=== PATIENT | female | born 1970 | race African-American/Black ===

== ENCOUNTER 2020-07-06 12:37 | Emergency (ER) | payer OTHER ==
[2020-07-06] MEDS ORDERED: ONDANSETRON HCL INJ/PF 4 MG/2 ML SDV IV ONE (12:51)
[2020-07-06] MEDS ORDERED: NORMAL SALINE 1000 ML 1,000 ML IV ONE (12:52)
--- NOTE | 2020-07-06 12:53 | ER Document Report ---
ED Medical Screen (RME) - General Chief Complaint: Dizziness Stated Complaint: DIZZINESS Time Seen by Provider: 07/06/20 12:47 Mode of Arrival: Ambulatory Information source: Patient Notes: Patient presents complaining of nausea dizziness and lower pelvic pain. Patient reports her menstrual cycle started today. Patient states she does feel hot although denies any chills. Patient denies any cough or cold symptoms, no urinary problems. Patient denies any chest discomfort. I have greeted and performed a rapid initial assessment of this patient. A comprehensive ED assessment and evaluation of the patient, analysis of test results and completion of the medical decision making process will be conducted by additional ED providers. Physical Exam - Vital signs Vitals: Temp Pulse Resp BP Pulse Ox 97.4 F 56 L 16 160/92 H 98 07/06/20 12:46 07/06/20 12:46 07/06/20 12:46 07/06/20 12:46 07/06/20 12:46 - Respiratory Respiratory status: No respiratory distress Breath sounds: Normal - Cardiovascular Rhythm: Bradycardia Heart sounds: S1 appreciated, S2 appreciated Course - Vital Signs Vital signs: Temp Pulse Resp BP Pulse Ox 97.4 F 56 L 16 160/92 H 98 07/06/20 12:46 07/06/20 12:46 07/06/20 12:46 07/06/20 12:46 07/06/20 12:46
[2020-07-06 14:04] LABS: ABSOLUTE BASOPHILS # (AUTO) 0.1 10^3/uL (0.0-0.2); ABSOLUTE LYMPHOCYTES (AUTO) 1.7 10^3/uL (0.5-4.7); ABSOLUTE MONOCYTES (AUTO) 0.6 10^3/uL (0.1-1.4); BASOPHILS % (AUTO) 0.8 % (0-2); EOSINOPHILS % (AUTO) 0.4 % (0-6); HEMATOCRIT 36.5 % (36.0-47.0); HEMOGLOBIN 12.6 g/dL (12.0-15.5); LYMPHOCYTES % (AUTO) 18.2 % (13-45); MEAN CORPUSCULAR HEMOGLOBIN 32.8 pg (27.0-33.4); MEAN CORPUSCULAR HGB CONC 34.5 g/dL (32.0-36.0); MEAN CORPUSCULAR VOLUME 95 fl (80-97); MONOCYTES % (AUTO) 6.4 % (3-13); PLATELET COUNT 331 10^3/uL (150-450); RED BLOOD COUNT 3.83 10^6/uL (3.72-5.28); RED CELL DISTRIBUTION WIDTH 12.8 % (11.5-14.0); SEGMENTED NEUTROPHILS % (AUTO) 74.2 % (42-78); TOTAL CELLS COUNTED % (AUTO) 100 %; WHITE BLOOD COUNT 9.4 10^3/uL (4.0-10.5)
[2020-07-06 14:24] LABS: ALBUMIN 4.2 g/dL (3.5-5.0); ALKALINE PHOSPHATASE 72 U/L (38-126); ANION GAP 8 (5-19); ASPARTATE AMINO TRANSFERASE 22 U/L (14-36); BILIRUBIN,DIRECT 0.2 mg/dL (0.0-0.4); BILIRUBIN,TOTAL 0.6 mg/dL (0.2-1.3); BLOOD UREA NITROGEN 11 mg/dL (7-20); CALCIUM 9.6 mg/dL (8.4-10.2); CARBON DIOXIDE 26 mmol/L (22-30); CHLORIDE 107 mmol/L (98-107); GLUCOSE 103 mg/dL (75-110); POTASSIUM 4.3 mmol/L (3.6-5.0); TOTAL PROTEIN 7.8 g/dL (6.3-8.2)
--- NOTE | 2020-07-06 15:08 | ER Document Report ---
ED Dizziness/Weakness - General Chief Complaint: Dizziness Stated Complaint: DIZZINESS Time Seen by Provider: 07/06/20 12:47 Mode of Arrival: Ambulatory Information source: Patient Notes: 07/06/20 12:47 - ED Nursing Note by LASHAWN WASHINGTON Acct Num: [id number] : 1970 Patient Age: 50 Pt ambulates into ER with c/o dizziness,nausea, lower abdominal pain that radiates bilaterally into thighs that started one week ago. Pt states that she started her period yesterday and normally has abdominal pain but the nausea and dizziness is new and is worsening. Pt states that it feels like the room is spinning. Denies any urinary symptoms. Pt aaox4, skin warm and dry, respirations e/u, NAD noted at this time. ED Medical Screen (RME) - General Chief Complaint: Dizziness Stated Complaint: DIZZINESS Time Seen by Provider: 07/06/20 12:47 Mode of Arrival: Ambulatory Information source: Patient Notes: Patient presents complaining of nausea dizziness and lower pelvic pain. Patient reports her menstrual cycle started today. Patient states she does feel hot although denies any chills. Patient denies any cough or cold symptoms, no urinary problems. Patient denies any chest discomfort. My Notes 50-year-old black female arrives with chief complaint of suprapubic pain for 1 week. She had vomiting yesterday. She ate cereal with milk this morning for breakfast. That was her last meal. She denies any trauma abuse fever chills cough or cold symptoms. She denies any coronavirus exposure. She denies any vaginal discharge. Patient had today in the ER a negative CBC Chem-7 and hCG. Prior history in 2009 for right-sided ectopic with surgery. She has right tube status post resection. She also had ovarian cyst in . - HPI Onset: Last week Onset/Duration: Sudden, Persistent Quality of pain: Achy Severity: Mild Pain Level: 1 - Related Data Allergies/Adverse Reactions: No Known Drug Allergies Allergy (Verified 07/06/20 12:58) Past Medical History - General Information source: Patient - Social History Smoking Status: Never Smoker Cigarette use (# per day): No Chew tobacco use (# tins/day): No Smoking Education Provided: No Frequency of alcohol use: None Drug Abuse: None Lives with: Family Family History: Reviewed & Not Pertinent Patient has suicidal ideation: No Patient has homicidal ideation: No Review of Systems - Review of Systems Constitutional: See HPI, Weakness EENT: No symptoms reported Cardiovascular: No symptoms reported Respiratory: No symptoms reported Gastrointestinal: See HPI, Abdominal pain, Nausea, Vomiting Genitourinary: No symptoms reported Female Genitourinary: No symptoms reported Musculoskeletal: No symptoms reported Skin: No symptoms reported Hematologic/Lymphatic: No symptoms reported Neurological/Psychological: No symptoms reported Physical Exam - Vital signs Vitals: Temp Pulse Resp BP Pulse Ox 97.4 F 56 L 16 160/92 H 98 07/06/20 12:46 07/06/20 12:46 07/06/20 12:46 07/06/20 12:46 07/06/20 12:46 Interpretation: Hypertensive, Bradycardic - General General appearance: Appears well, Alert - HEENT Head: Normocephalic, Atraumatic Eyes: Normal Pupils: PERRL Sinus: Normal Nasal: Normal Mouth/Lips: Normal Mucous membranes: Normal Pharynx: Normal Neck: Normal - Respiratory Respiratory status: No respiratory distress Chest status: Nontender Breath sounds: Normal Chest palpation: Normal - Cardiovascular Rhythm: Bradycardia Heart sounds: Normal auscultation Murmur: No - Abdominal Inspection: Normal Distension: No distension Bowel sounds: Normal Tenderness: Tender - Suprapubic tenderness on palpation Organomegaly: No organomegaly - Rectal Hemorrhoids: Other - deferred - Genitourinary Bimanuel exam: Other - deferred - Back Back: Normal - Extremities General upper extremity: Normal inspection General lower extremity: Normal inspection - Neurological Neuro grossly intact: Yes Cognition: Normal Orientation: AAOx4 Maribel Coma Scale Eye Opening: Spontaneous [place] Coma Scale Verbal: Oriented [place] Coma Scale Motor: Obeys Commands Maribel Coma Scale Total: 15 Speech: Normal Motor strength normal: LUE, RUE, LLE, RLE Sensory: Normal - Psychological Associated symptoms: Normal affect - Skin Skin Temperature: Warm Skin Moisture: Dry Course - Vital Signs Vital signs: Temp Pulse Resp BP Pulse Ox 97.4 F 56 L 16 160/92 H 98 07/06/20 12:46 07/06/20 12:46 07/06/20 12:46 07/06/20 12:46 07/06/20 12:46 - Laboratory Result Diagrams: 07/06/20 13:46 07/06/20 13:46 Laboratory results interpreted by me: 07/06/20 14:44 Urine Blood LARGE H - Diagnostic Test Radiology reviewed: Reports reviewed - Radiology advises patient has a 3.8 left ovarian cyst. Critical Care Note - Critical Care Note Comments: I advised patient of her ovarian cyst and its size. Family member was also in and she appeared to understand the diagnosis. I will write her for pain medicine and have her follow-up with her perioperative manager or PMD. She advises she does not need a work note for school note. I advised her to not do any dangerous machinery blinders ovens or back hoes chainsaws or automobiles while she is on pain medicine. Discharge - Discharge Clinical Impression: Abdominal pain Qualifiers: Abdominal location: unspecified location Qualified Code(s): R10.9 - Unspecified abdominal pain Ovarian cyst Qualifiers: Laterality: left Qualified Code(s): N83.202 - Unspecified ovarian cyst, left side Condition: Good Disposition: HOME, SELF-CARE Additional Instructions: I advised you of your ovarian cyst and its size. You appeared to understand the diagnosis. I will write you for pain medicine and have you follow-up with your perioperative manager or PMD. You advised you do not need a work note or school note. I advised you to not do any dangerous machinery blenders ovens or back hoes chainsaws or automobiles while on pain medicine. Prescriptions: Etodolac [Lodine] 400 mg PO BID PRN #20 tablet PRN Reason: Pain Scale Of 1 Oxycodone HCl/Acetaminophen [Percocet 5-325 mg Tablet] 1 tab PO TID #15 tablet
[2020-07-06 15:34] LABS: APPEARANCE,URINE CLEAR; BILIRUBIN,URINE NEGATIVE (NEGATIVE); COLOR,URINE YELLOW; GLUCOSE, URINE NEGATIVE (NEGATIVE); KETONES,URINE NEGATIVE (NEGATIVE); LEUKOCYTE ESTERASE,URINE NEGATIVE (NEGATIVE); NITRITE,URINE NEGATIVE (NEGATIVE); PROTEIN,URINE NEGATIVE (NEGATIVE); URINE SPECIFIC GRAVITY 1.011; UROBILINOGEN,URINE NEGATIVE mg/dL (<2.0)
--- NOTE | 2020-07-06 16:09 | RADIOLOGY REPORT (SQ) ---
EXAM DESCRIPTION: CT ABD/PELVIS WITH IV ONLY IMAGES COMPLETED DATE/TIME: 07/06/2020 3:50 pm REASON FOR STUDY: abd pain n/v dizzy COMPARISON: None. TECHNIQUE: CT scan of the abdomen and pelvis performed using helical scanning technique with dynamic intravenous contrast injection. No oral contrast. Images reviewed with lung, soft tissue, and bone windows. Reconstructed coronal and sagittal MPR images reviewed. Delayed images for evaluation of the urinary system also acquired. All images stored on PACS. All CT scanners at this facility use dose modulation, iterative reconstruction, and/or weight based d osing when appropriate to reduce radiation dose to as low as reasonably achievable (ALARA). [facility]: Dose Right [facility]: CareDose [facility]: Dose Right [facility]: Teradose 4D [facility]: Ninsight Broadcast CONTRAST TYPE AND DOSE: contrast/concentration: Isovue 350.00 mmol/ml; Total Contrast Delivered: 100 .0 ml; Total Saline Delivered: 39.2 ml RENAL FUNCTION: BUN 11 creatinine 0.78 RADIATION DOSE: CT Rad equipment meets quality standard of care and radiation dose reduction techniq ues were employed. CTDIvol: 12.8 - 17.6 mGy. DLP: 1621 mGy-cm.. LIMITATIONS: None. FINDINGS: LOWER CHEST: No significant findings. No nodules or infiltrates. LIVER: Normal size. No masses. No dilated ducts. SPLEEN: Normal size. No focal lesions. PANCREAS: No masses. No significant calcifications. No adjacent inflammation or peripancreatic fluid collections. Pancreatic duct not dilated. GALLBLADDER: No identified stones by CT criteria. No inflammatory changes to suggest cholecystitis. ADRENAL GLANDS: No significant masses or asymmetry. RIGHT KIDNEY AND URETER: No solid masses. No significant calcifications. No hydronephrosis or hyd roureter. LEFT KIDNEY AND URETER: No solid masses. No significant calcifications. No hydronephrosis or hydr oureter. AORTA AND VESSELS: No aneurysm. No dissection. Renal arteries, SMA, celiac without stenosis. RETROPERITONEUM: No retroperitoneal adenopathy, hemorrhage or masses. BOWEL AND PERITONEAL CAVITY: No masses or inflammatory changes. No free fluid or peritoneal masses. APPENDIX: Normal. PELVIS: Urinary bladder is normal. There is a 38 mm left ovarian cyst. ABDOMINAL WALL: No masses. No hernias. BONES: No significant or acute findings. OTHER: No other significant finding. IMPRESSION: 3.8 cm left ovarian cyst is almost certainly benign. No additional imaging is required for this. No other significant findings. TECHNICAL DOCUMENTATION: JOB ID: [id number] Quality ID # [id number]: Final reports with documentation of one or more dose reduction techniques (e.g., Au tomated exposure control, adjustment of the mA and/or kV according to patient size, use of iterative reconstruction technique) 2010 [employer]- All Rights Reserved Reading location - IP/workstation name: [email or web address]
[2020-07-06 17:31] VITALS: BP 131/78
--- NOTE | 2020-07-06 23:34 | EKG REPORT ---
SEVERITY:- ABNORMAL ECG - SINUS BRADYCARDIA LEFT AXIS DEVIATION NONSPECIFIC T ABNORMALITIES, DIFFUSE LEADS : Confirmed by: Margarita Holloway MD 06-Jul-2020 23:33:52
== END 2020-07-06 17:29 | disposition home or self-care (01) ==
LOC: ER 12:37
DX: N83.202 Unspecified ovarian cyst, left side (principal); R42 Dizziness and giddiness; R10.30 Lower abdominal pain, unspecified; M79.652 Pain in left thigh; M79.651 Pain in right thigh; R10.2 Pelvic and perineal pain; R11.2 Nausea with vomiting, unspecified; R10.9 Unspecified abdominal pain
CPT/HCPCS: 93005; 99285; 96361; 96374; 36415; 84703; 85025; 80053; 81001; 74177; 93010; J2405; J7030